=== PATIENT | female | born 1950 | race Two or more races ===

== ENCOUNTER 2018-09-14 16:15 | Emergency (ER) | payer MEDICARE ==
[~2018-09-14] VITALS: Ht 160 cm; Wt 100.3 kg
--- NOTE | 2018-09-14 16:37 | NUR ---
BIB GRAND DAUGHTER FROM HOME, C/O RASH, +NAUSEA x 3 DAYS, TO ER BED , HOOKED TO MONITOR, CHANGED TO GOWN, PROVIDED W WARM BLANKET, PT AOX4 , NOT IN DISTRESS, AWAITING MD GREENBERG
--- NOTE | 2018-09-14 16:42 | NUR ---
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
--- NOTE | 2018-09-14 17:15 | NUR ---
Patient discharged to home in stable condition. Written and verbal after care instructions given. Patient verbalizes understanding of instruction.
[2018-09-14 17:22] VITALS: BP 142/80
== END 2018-09-14 17:24 | disposition home or self-care (01) ==
LOC: ER 16:15
DX: S80.862A Insect bite (nonvenomous), left lower leg, initial encounter (principal); S80.861A Insect bite (nonvenomous), right lower leg, initial encounter; S30.860A Insect bite (nonvenomous) of lower back and pelvis, initial encounter; I10 Essential (primary) hypertension; F41.9 Anxiety disorder, unspecified; F32.9 Major depressive disorder, single episode, unspecified; F17.200 Nicotine dependence, unspecified, uncomplicated; Z87.442 Personal history of urinary calculi; Z60.2 Problems related to living alone; W57.XXXA Bitten or stung by nonvenomous insect and other nonvenomous arthropods, initial encounter; Y93.89 Activity, other specified; Y92.89 Other specified places as the place of occurrence of the external cause; Y99.8 Other external cause status